=== PATIENT | female | born 1970 | race Caucasian/White ===

== ENCOUNTER → 2018-05-24 | Outpatient (CLI) | payer OTHER ==
--- NOTE | 2018-05-24 13:45 | Diagnostic Imaging Report ---
INDICATION: Chronic neck pain. FINDINGS: AP and lateral views of the cervical spine show slight reversal of the lordotic curvature. Alignment is normal. There are some degenerative disc changes at C5-C6 and C6-C7. There is no fracture seen. IMPRESSION: Slight reversal of lordotic curvature may be due to muscle spasm. There are degenerative disc changes present at C5-C6 and C6-C7. Dictated by: Dictated on workstation # [id number]
== END ==
LOC: RAD 12:01
PROVIDERS: ATTEND Nurse Practitioner Family
DX: M50.322 Other cervical disc degeneration at C5-C6 level (principal)
CPT/HCPCS: 72040

== ENCOUNTER → 2022-12-18 | Outpatient (CLI) | payer OTHER ==
[~2022-12-18] MED LIST: CATHETER FLUSH 10 ML SYR IV PRN; HOLD METFORMIN - RECEIVED CONTRAST 20 ML VIAL IV SCH; IOHEXOL 350 MG/ML 100 ML (OMNIPAQUE 350) VIAL IV ONE; NS 100 ML (IVPB) BAG IV ONE
--- NOTE | 2022-12-18 11:39 | Diagnostic Imaging Report ---
INDICATION: Swelling in the right clavicle region. COMPARISON: No prior studies are available for comparison. CT NECK: The visualized intracranial structures are unremarkable. Posterior nasopharynx, oropharynx and larynx are unremarkable. There is a tiny thyroid cyst in the right lobe. The submandibular and parotid glands appear to be symmetric bilaterally. The parotid and carotid spaces are unremarkable. No definite cervical lymphadenopathy is detected. Patient reportedly has fullness in the right lower neck in the region of the medial clavicle. Patient does have prominent anterior jugular veins, particularly the right anterior jugular vein which demonstrates a moderate amount of dilatation just above the level of the medial right clavicle. This does drain into the right subclavian vein and there is overall slight asymmetry, right anterior jugular vein being larger compared to the left which could potentially represent some fullness in the right lower neck anteriorly. No mass or fluid collection in this region is identified. CT CHEST: No axillary or supraclavicular lymphadenopathy is detected. No mediastinal or hilar lymphadenopathy is identified. There is no pericardial or pleural fluid detected. No pulmonary infiltrates, nodules or masses are detected. CT ABDOMEN AND PELVIS: Right lobe of the liver does show a tiny low-attenuation lesion, too small to characterize but most likely a small cyst. Gallbladder is unremarkable. There is no biliary ductal dilatation. Pancreas and spleen are unremarkable. No adrenal mass is detected. Kidneys are unremarkable. No calculi or hydronephrosis is detected. Aorta is nonaneurysmal. No central, retroperitoneal or mesenteric lymphadenopathy is detected. Small and large bowel loops are normal caliber. There is no obstruction. There is no ascites. Uterus is surgically absent. Bladder is unremarkable. No pelvic lymphadenopathy is detected. Bony structures are nonacute. There is degenerative disc disease in the lower thoracic spine as well as the L1-L2 level with disc space narrowing and marginal osteophyte formation. IMPRESSION: 1. There are prominent anterior jugular veins, particularly on the right which could potentially account for the fullness noted in this area on physical exam. No discrete mass, fluid collection or lymphadenopathy is detected. 2. Essentially unremarkable CT of the chest, abdomen and pelvis without evidence of lymphadenopathy or mass. There does appear to be a tiny cyst within the right lobe of the thyroid as well as a probable tiny cyst in the right lobe of the liver. Dictated by: Dictated on workstation # [id number]
== END ==
LOC: RAD 08:45
PROVIDERS: ATTEND Nurse Practitioner Family
DX: M79.89 Other specified soft tissue disorders (principal)
CPT/HCPCS: 70491; 71260; 74176

== ENCOUNTER → 2023-03-26 | Outpatient (CLI) | payer OTHER ==
[~2023-03-26] MED LIST changes: -CATHETER FLUSH 10 ML SYR IV PRN; +GADOTERATE 0.5 MMOL/ML (CLARISCAN) 15 ML VIAL IV ONE; -HOLD METFORMIN - RECEIVED CONTRAST 20 ML VIAL IV SCH; -IOHEXOL 350 MG/ML 100 ML (OMNIPAQUE 350) VIAL IV ONE; -NS 100 ML (IVPB) BAG IV ONE
--- NOTE | 2023-03-26 16:13 | Diagnostic Imaging Report ---
PROCEDURE: MRI neck with and without contrast. TECHNIQUE: Multiplanar, multisequence MRI of the neck was performed with and without contrast. INDICATION: Swelling in the right clavicular region. COMPARISON: 12/18/2022. FINDINGS: The area of swelling in the right supraclavicular region delineated with external marker corresponds to a prominent external right jugular vein, unchanged compared to the prior CT. No evidence of soft tissue mass or fluid collection in this area. No abnormal enhancement. No lymphadenopathy. The posterior nasopharynx and oropharynx demonstrate appropriate symmetry. There is no displacement of the parapharyngeal fat planes. There is no abnormal process evident within the prevertebral or retropharyngeal space. There is no evidence of abnormal thickening of the epiglottis or aryepiglottic folds. The vocal folds appear symmetric. The parotid and submandibular glands have a normal appearance. Tiny benign-appearing cyst is seen in the right lobe of the thyroid. No pathologically enlarged cervical lymph nodes are evident. No focal inflammatory changes are demonstrated. No soft tissue mass or fluid collection demonstrated. The vascular structures the neck demonstrate no evidence of high-grade stenosis on this nondedicated exam. The visualized lung apices are clear. The visualized intracranial contents demonstrate no evidence of pathologic intracranial enhancement or intracranial mass effect. Visualized orbital contents are unremarkable. The visualized paranasal sinuses are clear. The mastoids and middle ears are clear. No acute osseous abnormality in the cervical spine. Impression: 1. Prominent right external jugular vein which corresponds to the marker delineating the area of swelling in the right supraclavicular region. No evidence of mass or fluid collection. No further followup is recommended. 2. No mass or fluid collection in the aerodigestive tract. No lymphadenopathy in the neck. Dictated by: Dictated on workstation # [id number]
== END ==
LOC: RAD 12:16
PROVIDERS: ATTEND Nurse Practitioner Family
DX: M79.89 Other specified soft tissue disorders (principal); R22.1 Localized swelling, mass and lump, neck
CPT/HCPCS: 70543